=== PATIENT | female | born 2000 | race African-American/Black ===

== ENCOUNTER 2021-03-26 14:51 | Emergency (ER) | payer OTHER ==
[2021-03-26 15:33] LABS: #Eosinphils 0.1 thou/uL (0.0-0.7); #Lymphocytes 1.8 thou/uL (1.20-3.40); #Monocytes 0.5 thou/uL (0.11-0.59); #Neutrophils 6.3 thou/uL (1.40-6.50); %Basophils 0.2 % (0.0-1.0); %Eosinophils 0.9 % (0.0-10.0); %Lymphocytes 20.9 % (21.0-51.0); Hemoglobin 13.1 g/dL (12.0-16.0); Mean Corpuscular HGB CONC 33.8 g/dL (32.0-36.0); Mean Corpuscular Hemoglobin 28.9 pg (27.0-31.0); Mean Corpuscular Volume 85.5 fL (78.0-98.0); Mean Platelet Volume 6.9 fL (7.4-10.4); Platelet Count 232 thou/uL (130-400); RBC Distribution Width 11.2 % (11.5-14.5); Red Blood Cell (RBC) Count 4.52 mill/uL (4.20-5.40); White Blood Cell (WBC) Count 8.7 thou/uL (4.8-10.8)
[2021-03-26 16:05] LABS: ALT (SGPT) 10 U/L (8-55); AST (SGOT) 20 U/L (5-34); Acetaminophen Less than 6.0 mcg/mL (10.0-30.0); Albumin 4.1 g/dL (3.5-5.0); Alcohol Less than 10 mg/dL (Less than 10); Alkaline Phosphatase 78 U/L (40-110); Anion Gap 15 mmol/L (10-20); BUN (Urea Nitrogen) 14 mg/dL (7.0-18.7); Bilirubin, Total 1.6 mg/dL (0.2-1.2); Calc. Creatinine Clearance 0 mL/min (70-130); Calcium 9.7 mg/dL (7.8-10.44); Carbon Dioxide 21 mmol/L (22-29); Chloride 107 mmol/L (98-107); Globulin 3.3 g/dL (2.4-3.5); Glucose 83 mg/dL (70-105); Potassium 4.1 mmol/L (3.5-5.1); Protein, Total 7.4 g/dL (6.0-8.3); Salicylate Less than 8.0 mg/dL (15.0-30.0); Sodium 139 mmol/L (136-145)
[2021-03-26 17:24] LABS: Bacteria/HPF None Seen HPF (None Seen); Bilirubin Negative (Negative); Blood, Urine Negative (Negative); Clarity Clear (Clear); Glucose, Urine (Dipstick) Normal (Negative); Ketone, Urine Trace mg/dL (Negative); Leukocyte 250 Leu/uL (Negative); Nitrite Negative (Negative); Protein, Urine (Dipstick) 20 mg/dL (Neg-Trace); RBC/HPF 0-3 HPF (0-3); Urobilinogen Normal mg/dL (Less than 2); pH, Urine 5.5 (5.0-9.0)
[2021-03-26 17:25] LABS: Pregnancy Test - Urine (BHCG) Negative (Negative); Pregu Control Background? CLEAR/WHITE (CLR/WHITE); Pregu Control Bar Appear? YES (CONTROL BAR)
[2021-03-26] MEDS ORDERED: Acetaminophen 500 MG TAB ONE (17:38)
[2021-03-26] MEDS ORDERED: Cephalexin 250 MG CAP ONE (17:43)
[2021-03-27 00:41] LABS: SARS-CoV-2 NAA Rapid Test Not Detected (NotDetected)
== END 2021-03-26 23:47 ==
LOC: ERS 14:51
DX: S00.83XA Contusion of other part of head, initial encounter (principal); R45.851 Suicidal ideations; J45.909 Unspecified asthma, uncomplicated; W22.01XA Walked into wall, initial encounter; Z20.822 Contact with and (suspected) exposure to COVID-19
CPT/HCPCS: 36415; 70450; 72125; 80053; 80307; 81003; 81015; 81025; 84443; 85025; 93005; U0002

== ENCOUNTER 2021-04-05 23:30 | Inpatient (IN) | payer OTHER ==
[2021-04-05] MEDS ORDERED: Lorazepam 2 MG/ML VIAL ONE (23:38)
[2021-04-05] MEDS ORDERED: levETIRAcetam in NS 200 ML ONE (23:43)
[2021-04-06 00:27] LABS: #Eosinphils 0.1 thou/uL (0.0-0.7); #Lymphocytes 1.6 thou/uL (1.20-3.40); #Monocytes 0.6 thou/uL (0.11-0.59); #Neutrophils 6.8 thou/uL (1.40-6.50); %Basophils 0.2 % (0.0-1.0); %Eosinophils 1.2 % (0.0-10.0); %Lymphocytes 17.6 % (21.0-51.0); %Monocytes 6.9 % (0.0-10.0); %Neutrophils 74.2 % (42.0-75.0); Mean Corpuscular Hemoglobin 29.1 pg (27.0-31.0); Mean Corpuscular Volume 85.6 fL (78.0-98.0); Platelet Count 192 thou/uL (130-400); RBC Distribution Width 11.1 % (11.5-14.5); Red Blood Cell (RBC) Count 4.11 mill/uL (4.20-5.40); White Blood Cell (WBC) Count 9.2 thou/uL (4.8-10.8)
[2021-04-06 00:49] LABS: ALT (SGPT) 8 U/L (8-55); AST (SGOT) 15 U/L (5-34); Albumin 3.5 g/dL (3.5-5.0); Alkaline Phosphatase 64 U/L (40-110); Anion Gap 16 mmol/L (10-20); BUN (Urea Nitrogen) 12 mg/dL (7.0-18.7); Bilirubin, Total 0.8 mg/dL (0.2-1.2); Calc. Creatinine Clearance 0 mL/min (70-130); Calcium 8.7 mg/dL (7.8-10.44); Carbon Dioxide 18 mmol/L (22-29); Chloride 109 mmol/L (98-107); Globulin 2.3 g/dL (2.4-3.5); Glucose 91 mg/dL (70-105); Potassium 3.9 mmol/L (3.5-5.1); Protein, Total 5.8 g/dL (6.0-8.3); Sodium 139 mmol/L (136-145)
[2021-04-06 00:55] LABS: Acetaminophen Less than 6.0 mcg/mL (10.0-30.0); Alcohol Less than 10 mg/dL (Less than 10); Salicylate Less than 8.0 mg/dL (15.0-30.0)
[2021-04-06 03:59] LABS: Amphetamine Not Detected (NotDetected); Barbiturates Screen Not Detected (NotDetected); Benzodiazepine Screen Detected (NotDetected); Cocaine Metabolite Screen Not Detected (NotDetected); Methadone Not Detected (NotDetected); Methamphetamine Not Detected (NotDetected); Opiate Screen Not Detected (NotDetected); Oxycodone Screen Not Detected (NotDetected); Phencyclidine (PCP) Not Detected (NotDetected); THC/Cannabinoid Screen Not Detected (NotDetected); Tricyclic Screen Not Detected (NotDetected)
[2021-04-06 06:20] VITALS: BMI 23.9
[2021-04-06] MEDS ORDERED: Acetaminophen 650 MG Suppository PR PRN (09:37)
[2021-04-06] MEDS ORDERED: Ondansetron PF 4 MG/2 ML Vial IVP PRN (09:37)
[2021-04-06] MEDS ORDERED: Ondansetron ODT 4 MG TAB PO PRN (09:37)
[2021-04-06] MEDS ORDERED: Lorazepam 2 MG/ML VIAL SLOW IVP PRN (09:39)
[2021-04-06] MEDS ORDERED: Cetirizine HCl 10 MG TAB PO SCH (09:45)
[2021-04-06] MEDS ORDERED: Magnevist 469MG/ML 20 ML VIAL ONE (09:51)
[2021-04-06] MEDS ORDERED: Loratadine 10 MG TAB PO SCH (10:00)
[2021-04-06] MEDS ORDERED: FLU VACC QS2021-22(6MOS UP)/PF 60 MCG/0.5 ML SYRINGE IM ONE (14:00)
[2021-04-06 14:37] LABS: SARS-CoV-2 PCR by NAA Not Detected (NotDetected)
[2021-04-06] MEDS: Acetaminophen 325 MG TAB PO PRN ×2 (16:25→22:03)
[2021-04-06] MEDS ORDERED: traMADol HCl 50 MG TAB PO SCH (17:15)
[2021-04-06] MEDS: levETIRAcetam in NS 1,000 MG in Premix Bag 1 BAG IVPB SCH (22:04)
[2021-04-07 05:37] LABS: #Eosinphils 0.2 thou/uL (0.0-0.7); #Lymphocytes 2.8 thou/uL (1.20-3.40); #Monocytes 0.5 thou/uL (0.11-0.59); #Neutrophils 4.1 thou/uL (1.40-6.50); %Basophils 0.3 % (0.0-1.0); %Eosinophils 2.1 % (0.0-10.0); %Lymphocytes 36.9 % (21.0-51.0); %Monocytes 6.3 % (0.0-10.0); %Neutrophils 54.4 % (42.0-75.0); Hemoglobin 12.2 g/dL (12.0-16.0); Mean Corpuscular HGB CONC 34.3 g/dL (32.0-36.0); Mean Corpuscular Hemoglobin 29.4 pg (27.0-31.0); Mean Corpuscular Volume 85.7 fL (78.0-98.0); Mean Platelet Volume 7.1 fL (7.4-10.4); Platelet Count 188 thou/uL (130-400); RBC Distribution Width 11.1 % (11.5-14.5); Red Blood Cell (RBC) Count 4.16 mill/uL (4.20-5.40); White Blood Cell (WBC) Count 7.4 thou/uL (4.8-10.8)
[2021-04-07 06:02] LABS: Anion Gap 10 mmol/L (10-20); BUN (Urea Nitrogen) 7 mg/dL (7.0-18.7); Calc. Creatinine Clearance 118 mL/min (70-130); Calcium 8.9 mg/dL (7.8-10.44); Carbon Dioxide 23 mmol/L (22-29); Chloride 108 mmol/L (98-107); Glucose 85 mg/dL (70-105); Potassium 4.1 mmol/L (3.5-5.1); Sodium 137 mmol/L (136-145)
[2021-04-07] MEDS: levETIRAcetam in NS 1,000 MG in Premix Bag 1 BAG IVPB SCH ×2 (09:28→21:12)
[2021-04-07] MEDS: Acetaminophen 325 MG TAB PO PRN ×2 (09:28→21:29)
[2021-04-07] MEDS ORDERED: predniSONE 20 MG TAB PO SCH (10:00)
[2021-04-08 06:08] LABS: #Eosinphils 0.1 thou/uL (0.0-0.7); #Lymphocytes 2.8 thou/uL (1.20-3.40); #Neutrophils 7.6 thou/uL (1.40-6.50); %Basophils 0.3 % (0.0-1.0); %Eosinophils 0.5 % (0.0-10.0); %Lymphocytes 24.2 % (21.0-51.0); %Monocytes 8.4 % (0.0-10.0); %Neutrophils 66.6 % (42.0-75.0); Hemoglobin 12.8 g/dL (12.0-16.0); Mean Corpuscular HGB CONC 35.1 g/dL (32.0-36.0); Mean Corpuscular Hemoglobin 29.7 pg (27.0-31.0); Mean Corpuscular Volume 84.6 fL (78.0-98.0); Mean Platelet Volume 7.2 fL (7.4-10.4); Platelet Count 194 thou/uL (130-400); RBC Distribution Width 11.1 % (11.5-14.5); Red Blood Cell (RBC) Count 4.31 mill/uL (4.20-5.40); White Blood Cell (WBC) Count 11.3 thou/uL (4.8-10.8)
[2021-04-08 06:28] LABS: Anion Gap 13 mmol/L (10-20); BUN (Urea Nitrogen) 6 mg/dL (7.0-18.7); Calc. Creatinine Clearance 125 mL/min (70-130); Calcium 9.4 mg/dL (7.8-10.44); Carbon Dioxide 22 mmol/L (22-29); Chloride 107 mmol/L (98-107); Glucose 122 mg/dL (70-105); Potassium 3.5 mmol/L (3.5-5.1); Sodium 138 mmol/L (136-145)
[2021-04-08] MEDS ORDERED: predniSONE 20 MG TAB PO SCH (08:00)
[2021-04-08] MEDS ORDERED: levETIRAcetam 500 MG TAB PO SCH ×2 (11:30→21:00)
[2021-04-08] MEDS: levETIRAcetam in NS 1,000 MG in Premix Bag 1 BAG IVPB SCH (11:32)
[2021-04-08] MEDS: Acetaminophen 325 MG TAB PO PRN (12:28)
[2021-04-08 21:02] VITALS: BP 142/78; TEMP 97.1
== END 2021-04-08 15:20 | DRG 101 ==
LOC: ERS 23:30 → 3SE 04-06 02:12
PROVIDERS: ADMIT Internal Medicine; ATTEND Internal Medicine
DX: G40.901 Epilepsy, unspecified, not intractable, with status epilepticus (principal); R45.851 Suicidal ideations; J45.909 Unspecified asthma, uncomplicated; F41.9 Anxiety disorder, unspecified; F32.A Depression, unspecified; J45.20 Mild intermittent asthma, uncomplicated; F17.210 Nicotine dependence, cigarettes, uncomplicated; F10.10 Alcohol abuse, uncomplicated; F12.10 Cannabis abuse, uncomplicated; R22.0 Localized swelling, mass and lump, head; Z79.899 Other long term (current) drug therapy
CPT/HCPCS: 36415; 51701; 70450; 70553; 72125; 80048; 80053; 80306; 80307; 84146; 84443; 85025; 93005; 95712; 95715; 95819; 95957; 96365; 96375; A9579; J1953; J2060; J7512; U0003; U0005

== ENCOUNTER 2021-04-15 23:40 | Emergency (ER) | payer OTHER | END 2021-04-16 00:23 | LOC: ERS 23:40 | DX: S51.811A Laceration without foreign body of right forearm, initial encounter (principal); S51.822A Laceration with foreign body of left forearm, initial encounter; J45.909 Unspecified asthma, uncomplicated; X78.9XXA Intentional self-harm by unspecified sharp object, initial encounter | CPT/HCPCS: 12001 ==

== ENCOUNTER 2022-02-12 15:07 | Emergency (ER) | payer OTHER, SELFPAY ==
[2022-02-12] MEDS ORDERED: Lidocaine 1% PF 5 ML VIAL ONE (16:05)
[2022-02-12 16:26] LABS: #Basophils 0.1 thou/uL (0.0-0.2); #Eosinphils 0.5 thou/uL (0.0-0.7); #Lymphocytes 1.9 thou/uL (1.20-3.40); #Monocytes 0.4 thou/uL (0.11-0.59); #Neutrophils 1.9 thou/uL (1.40-6.50); %Basophils 1.2 % (0.0-1.0); %Eosinophils 10.7 % (0.0-10.0); %Lymphocytes 40.5 % (21.0-51.0); %Monocytes 7.8 % (0.0-10.0); %Neutrophils 39.7 % (42.0-75.0); Mean Corpuscular HGB CONC 32.5 g/dL (32.0-36.0); Mean Corpuscular Hemoglobin 28.5 pg (27.0-31.0); Mean Corpuscular Volume 87.6 fL (78.0-98.0); Mean Platelet Volume 6.7 fL (7.4-10.4); Platelet Count 250 thou/uL (130-400); RBC Distribution Width 11.1 % (11.5-14.5); Red Blood Cell (RBC) Count 4.55 mill/uL (4.20-5.40); White Blood Cell (WBC) Count 4.7 thou/uL (4.8-10.8)
[2022-02-12 16:56] LABS: ALT (SGPT) 9 U/L (8-55); AST (SGOT) 16 U/L (5-34); Acetaminophen Less than 10.0 mcg/mL (10.0-30.0); Albumin 4.2 g/dL (3.5-5.0); Alcohol Less than 10 mg/dL (Less than 10); Alkaline Phosphatase 79 U/L (40-110); Anion Gap 13 mmol/L (10-20); BUN (Urea Nitrogen) 14 mg/dL (7.0-18.7); Bilirubin, Total 1.5 mg/dL (0.2-1.2); Calc. Creatinine Clearance 0 mL/min (70-130); Calcium 9.4 mg/dL (7.8-10.44); Carbon Dioxide 25 mmol/L (22-29); Chloride 108 mmol/L (98-107); Estimated GFR 90; Glucose 84 mg/dL (70-105); Potassium 4.7 mmol/L (3.5-5.1); Protein, Total 7.2 g/dL (6.0-8.3); Salicylate Less than 8.0 mg/dL (15.0-30.0); Sodium 141 mmol/L (136-145)
[2022-02-12] MEDS ORDERED: Bacitracin 1 PK ONE (17:36)
[2022-02-12 17:58] LABS: Bilirubin Negative (Negative); Blood, Urine Negative (Negative); Clarity Clear (Clear); Glucose, Urine (Dipstick) Normal (Negative); Ketone, Urine Negative (Negative); Leukocyte Negative Leu/uL (Negative); Nitrite Negative (Negative); Protein, Urine (Dipstick) Negative (Neg-Trace); Specific Gravity, Urine 1.029 (1.002-1.036); Urobilinogen Normal mg/dL (Less than 2); pH, Urine 6.5 (5.0-9.0)
[2022-02-12 18:10] LABS: Amphetamine Not Detected (NotDetected); Barbiturates Screen Not Detected (NotDetected); Benzodiazepine Screen Not Detected (NotDetected); Cocaine Metabolite Screen Not Detected (NotDetected); Methadone Not Detected (NotDetected); Methamphetamine Not Detected (NotDetected); Opiate Screen Not Detected (NotDetected); Oxycodone Screen Not Detected (NotDetected); Phencyclidine (PCP) Not Detected (NotDetected); THC/Cannabinoid Screen Not Detected (NotDetected); Tricyclic Screen Not Detected (NotDetected)
== END 2022-02-12 21:08 | disposition home or self-care (01) ==
LOC: ERS 15:07
DX: S51.811A Laceration without foreign body of right forearm, initial encounter (principal); X78.9XXA Intentional self-harm by unspecified sharp object, initial encounter
CPT/HCPCS: 12004; 36415; 80053; 80306; 80307; 81003; 84443; 85025; 93005

== ENCOUNTER 2022-02-20 22:18 | Emergency (ER) | payer SELFPAY | END 2022-02-20 23:35 | disposition home or self-care (01) | LOC: ERS 22:18 | DX: G89.18 Other acute postprocedural pain (principal); M79.631 Pain in right forearm | CPT/HCPCS: 99282 ==